=== PATIENT | male | born 1985 | race Caucasian/White ===

== ENCOUNTER 2016-11-17 01:24 | Emergency (ER) | payer SELFPAY ==
[2016-11-17 01:28] VITALS: BP 141/94
[2016-11-17] MEDS ORDERED: Lidocaine 1% 20 ML MDV ONE (02:04)
[2016-11-17] MEDS ORDERED: Lidocaine 1% 20 ML MDV INJECT ONE (02:13)
[2016-11-17] MEDS ORDERED: Acetaminophen 500 MG Tab ONE (02:23)
[2016-11-17] MEDS ORDERED: Acetaminophen 500 MG Tab PO ONE (02:30)
[2016-11-17] MEDS ORDERED: Bacitracin/Neomycin/Polymyxin B Oint 0.9 GM U/D Packet ONE (02:31)
[2016-11-17] MEDS ORDERED: Diphtheria,Pertussis(Acell),Tetanus Vaccine 0.5 ML Syringe IM ONE (02:34)
[2016-11-17] MEDS ORDERED: Bacitracin/Neomycin/Polymyxin B Oint 0.9 GM U/D Packet TOP ONE (02:35)
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
== END 2016-11-17 03:25 | disposition home or self-care (01) ==
LOC: CC.ED 01:24
DX: S01.81XA Laceration without foreign body of other part of head, initial encounter (principal); F17.210 Nicotine dependence, cigarettes, uncomplicated; X58.XXXA Exposure to other specified factors, initial encounter
CPT/HCPCS: 12011; 70450; 90471; 90715; 99284; A9270; 96372

== ENCOUNTER 2021-10-15 14:58 | Emergency (ER) | payer OTHER, MEDICAID ==
[2021-10-15 15:13] VITALS: BP 137/96; PULSE 94
[2021-10-15] MEDS: Lidocaine 1% with EPINEPHrine 1:100,000 20 ML MDV INJECT ONE (15:25)
[2021-10-15] MEDS: Lidocaine 2% with EPINEPHrine 1:100,000 20 ML MDV INJECT ONE (15:25)
[2021-10-15] MEDS: Bacitracin/Neomycin/Polymyxin B Oint 0.9 GM U/D Packet TOP ONE (15:43)
== END 2021-10-15 15:58 | disposition home or self-care (01) ==
LOC: CC.ED 14:58
DX: S61.412A Laceration without foreign body of left hand, initial encounter (principal); W26.8XXA Contact with other sharp object(s), not elsewhere classified, initial encounter
CPT/HCPCS: 12001; 99282; 99283

== ENCOUNTER 2022-06-01 14:04 | Emergency (ER) | payer MEDICAID ==
[2022-06-01] MEDS: Ciprofloxacin 0.3% Ophth Soln 5 ML Bottle EYERT SCH (14:43)
[2022-06-01 16:07] VITALS: BP 130/89; PULSE 94
== END 2022-06-01 15:10 | disposition home or self-care (01) ==
LOC: CC.ED 14:04
DX: H16.001 Unspecified corneal ulcer, right eye (principal)
CPT/HCPCS: 99283; A9270-GY